=== PATIENT | female | born 1970 | race Caucasian/White ===

== ENCOUNTER 2020-05-06 08:16 | Emergency (ER) | payer OTHER ==
[~2020-05-06] VITALS: Ht 175.3 cm; Wt 108.9 kg
[2020-05-06 08:25] VITALS: BP 133/78; Ht 175.3 cm; Wt 108.9 kg
== END 2020-05-06 08:45 | disposition left against medical advice (07) ==
LOC: ED 08:16
DX: M25.511 Pain in right shoulder (principal); M54.2 Cervicalgia; J45.909 Unspecified asthma, uncomplicated